=== PATIENT | female | born 1970 | race Caucasian/White ===

== ENCOUNTER 2021-06-06 14:44 | Emergency (ER) | payer SELFPAY ==
[~2021-06-06] VITALS: Ht 152.4 cm; Wt 104.3 kg
[~2021-06-06 14:44] MED LIST: CEPH500 PO; HYDACE5 PO; Naprosyn500 MG PO; Percocet 5-3251 EACH PO; Prilosec Otc20 MG; RANI150 PO; Valium5 MG PO
[2021-06-06 15:35] LABS: Appearance, Urine Clear (Clear); Bilirubin, Urine Neg (Neg); Blood, Urine Neg (Neg); Color, Urine Yellow (P-Yellow); Glucose Qualitative, Urine Neg (Neg); Ketones, Urine Neg (Neg); Leukocyte Esterase, Urine Neg (Neg); Nitrite, Urine Neg (Neg); Protein, Urine Neg (Neg); Specific Gravity, Urine 1.015 (1.003-1.022); Urobilinogen, Urine NORM (Normal)
[2021-06-06] MEDS ORDERED: Pyridium200 MG PO (17:26)
[2021-06-06] MEDS ORDERED: CEFD300 PO (17:26)
== END 2021-06-06 17:53 | disposition home or self-care (01) ==
LOC: ER 14:44
PROVIDERS: Student in an Organized Health Care Education/Training Program
DX: N30.90 Cystitis, unspecified without hematuria (principal); F17.200 Nicotine dependence, unspecified, uncomplicated
CPT/HCPCS: 81003; 87086; 99284

== ENCOUNTER → 2021-06-30 | Outpatient (CLI) | payer OTHER ==
[~2021-06-30] MED LIST changes: +CEFD300 PO; +Pyridium200 MG PO
== END | disposition home or self-care (01) ==
LOC: LAB SHORT 12:00
DX: N39.0 Urinary tract infection, site not specified (principal)
CPT/HCPCS: 87086; 87147

== ENCOUNTER 2021-12-10 08:18 | Emergency (ER) | payer SELFPAY ==
[~2021-12-10] VITALS: Ht 154.9 cm; Wt 111.1 kg
[2021-12-10] MEDS ORDERED: Cleocin HCl300 MG PO (09:04)
== END 2021-12-10 09:48 | disposition home or self-care (01) ==
LOC: ER 08:18
DX: K02.9 Dental caries, unspecified (principal); K21.9 Gastro-esophageal reflux disease without esophagitis; Z79.899 Other long term (current) drug therapy
CPT/HCPCS: 99282

== ENCOUNTER → 2022-04-03 | Outpatient (CLI) | payer OTHER ==
[~2022-04-03] MED LIST changes: +Cleocin HCl300 MG PO
== END | disposition home or self-care (01) ==
LOC: LAB SHORT 15:40 → LAB 15:40
DX: N39.0 Urinary tract infection, site not specified (principal)
CPT/HCPCS: 87077; 87086; 87186

== ENCOUNTER 2022-06-26 06:35 | Day surgery (SDC) | payer OTHER ==
[~2022-06-26] VITALS: Ht 154.9 cm; Wt 105.4 kg
[~2022-06-26 06:35] MED LIST changes: +Adipex-P37.5 MG PO; +CYCL10 PO; +NAPR220 PO; +Norco 10-325 T1 EACH PO
[2022-06-26] MEDS ORDERED: OMEP20ER PO (06:58)
[2022-06-26] MEDS ORDERED: MINO50 (07:01)
[2022-06-26] MEDS ORDERED: DOCU100 PO (07:02)
--- NOTE | 2022-06-26 09:31 | NUR ---
06/26/22 0931 Sherrill Woods PATIENT ALSO RECEIVED VANCO 1GM IN PREOP PRIOR TO ARRIVING IN THE OR.
--- NOTE | 2022-06-26 20:02 | NUR ---
SHIFT SUMMARY PT POD 0 L TKA. PT UP IN CHAIR T/O SHIFT. WORKED WITH PT. WALKER WITH ALL ACTIVITY. VOIDING W/O DIFFICULTY. PAIN HAS BEEN WELL MANAGED WITH PAIN MED (SEE EMAR). PLAN DC KAEL AFTER THERAPY CLEARS.
[2022-06-27 05:27] LABS: Bun/Creatinine Ratio 21.9 (12.0-20.0); Calcium, Blood 8.6 mg/dL (8.5-10.1); Creatinine, Blood 0.73 mg/dL (0.40-1.00); Potassium, Blood 4.2 mmol/L (3.5-5.5)
--- NOTE | 2022-06-27 06:26 | NUR ---
POD 1 S/P L TKA. PT VSS T/O NIGHT. DRESSING CDI, POLAR PACK IN [place]. PT REP FULL SENSATION, DENIED N/T, CAP REFILL WNL. PAIN MGD W/2 OXYCODONE +SCHEDULED TYLENOL AND TORADOL W/REP RELIEF. PT GHULAM PO, DENIED N/V, IS VOIDING URINE W/O DIFFICULTY. PT AMB W/FWW+SBA, GHULAM WELL. PLAN TO MOBILIZE W/PT AND DC HOME WHEN CLEARED.
[2022-06-27 06:44] LABS: BASOPHILS ABSOLUTE AUTO 0.01 K/mm3 (0.00-0.23); BASOPHILS PERCENT AUTO 0 % (0-2); EOSINOPHILS ABSOLUTE AUTO 0.02 K/mm3 (0.00-0.68); EOSINOPHILS PERCENT AUTO 0 % (0-6); Hematocrit 36.9 % (33.0-51.0); IMMATURE GRAN ABSOLUTE AUTO 0.02 K/mm3 (0.00-0.10); IMMATURE GRAN PERCENT AUTO 0 % (0-1); LYMPHOCYTES ABSOLUTE AUTO 1.67 K/mm3 (0.84-5.20); LYMPHOCYTES PERCENT AUTO 20 % (21-46); MONOCYTES ABSOLUTE AUTO 0.95 K/mm3 (0.16-1.47); MONOCYTES PERCENT AUTO 11 % (4-13); Mean Corpuscular HGB 31.2 pg (26.0-34.0); Mean Corpuscular HGB Conc 32.5 g/dL (31.5-36.5); Mean Corpuscular Volume 96 fL (80-100); Mean Platelet Volume 9.1 fL (9.1-12.4); NEUTROPHILS PERCENT AUTO 68 % (41-73); Platelet Count 220 K/mm3 (150-400); RDW Coefficient Variation 12.1 % (11.7-14.2); RDW Standard Deviation 42.5 fL (35.1-46.3); Red Blood Cell Count 3.85 M/mm3 (3.80-5.20); White Blood Cell Count 8.37 K/mm3 (4.00-11.30)
[2022-06-27] MEDS ORDERED: ELIQUIS2.5 MG PO (08:05)
[2022-06-27] MEDS ORDERED: Percocet 5-3251 EACH PO (08:05)
--- NOTE | 2022-06-27 11:47 | NUR ---
DISCHARGE PATIENT CLEARED THERAPY, EATING, DRINKING, VOIDING. PAIN IS REASAONABLY CONTROLLED. IV OUT, POLAR PACK, SCRIPTS AND DRESSINGS GIVEN TO PATIENT. ESCORTED OUT VIA WHEELCHAIR.
== END 2022-06-27 11:27 | disposition home or self-care (01) ==
LOC: ORSCMMR 06:35 → ORD 08:15 → SURS 12:58 → ORSCMMR 06-27 11:27
PROVIDERS: Orthopaedic Surgery
PROC: 8E0Y0CZ Robotic Assisted Procedure of Lower Extremity, Open Approach (ICD-10-PCS; principal; 2022-06-26 08:15)
PROC: 0SRD0JA Replacement of Left Knee Joint with Synthetic Substitute, Uncemented, Open Approach (ICD-10-PCS; principal; 2022-06-26 08:15)
DX: M17.12 Unilateral primary osteoarthritis, left knee (principal); M10.9 Gout, unspecified; I10 Essential (primary) hypertension; F41.9 Anxiety disorder, unspecified; E66.01 Morbid (severe) obesity due to excess calories; Z68.41 Body mass index [BMI] 40.0-44.9, adult; Z79.899 Other long term (current) drug therapy; Z87.891 Personal history of nicotine dependence
CPT/HCPCS: 27447; 20985; S2900; 36415; 73560-LT; 80048; 82947; 83036; 85025; 97110; 97116; 97161; A9270; C1776; J0171; J0360; J0690; J0735; J1100; J1170; J1885; J2250; J2405; J2704; J2795; J3010; J3370; J7120

== ENCOUNTER 2022-09-13 08:26 | Day surgery (SDC) | payer OTHER ==
[2022-09-10 11:02] LABS: BASOPHILS ABSOLUTE AUTO 0.02 K/mm3 (0.00-0.23); BASOPHILS PERCENT AUTO 1 % (0-2); EOSINOPHILS ABSOLUTE AUTO 0.04 K/mm3 (0.00-0.68); EOSINOPHILS PERCENT AUTO 1 % (0-6); Hematocrit 43.5 % (33.0-51.0); Hemoglobin 14.4 g/dL (11.5-16.0); IMMATURE GRAN PERCENT AUTO 0 % (0-1); LYMPHOCYTES PERCENT AUTO 33 % (21-46); MONOCYTES ABSOLUTE AUTO 0.34 K/mm3 (0.16-1.47); MONOCYTES PERCENT AUTO 9 % (4-13); Mean Corpuscular HGB 31.4 pg (26.0-34.0); Mean Corpuscular HGB Conc 33.1 g/dL (31.5-36.5); Mean Corpuscular Volume 95 fL (80-100); NEUTROPHILS PERCENT AUTO 57 % (41-73); Platelet Count 254 K/mm3 (150-400); RDW Coefficient Variation 12.4 % (11.7-14.2); RDW Standard Deviation 43.1 fL (35.1-46.3); Red Blood Cell Count 4.59 M/mm3 (3.80-5.20)
[2022-09-10 12:39] LABS: Bun/Creatinine Ratio 33.2 (12.0-20.0); Calcium, Blood 9.2 mg/dL (8.5-10.1); Creatinine, Blood 0.6 mg/dL (0.40-1.00); Potassium, Blood 4.1 mmol/L (3.5-5.5)
[~2022-09-13] VITALS: Ht 157.5 cm; Wt 114.4 kg
[~2022-09-13 08:26] MED LIST changes: +AMOX500 PO; +DOCU100 PO; +ELIQUIS2.5 MG PO; +LOSA50 PO; +MINO50; +OMEP20ER PO
--- NOTE | 2022-09-13 09:06 | NUR ---
Ambulatory in Day Surgery History, Chart, Medications and Allergies reviewed before start of procedure.Pre-Op teaching done. Pt verbalizes understanding. Patient States Post-Procedure ride home has been arranged.
--- NOTE | 2022-09-13 09:20 | NUR ---
09/13/22 0920 Glenn Meadows History, Chart, Medications and Allergies reviewed before start of procedure.MONITOR INTACT WITH CONTINUOUS PULSE OXIMETRY AND INTERMITTENT BP.3-LEAD EKG REVIEWED WITH PHYSICIAN PRIOR TO START OF PROCEDURE.O2 VIA N/C INTACT THROUGHOUT SEDATION/PROCEDURE. See Anesthesia record.
--- NOTE | 2022-09-13 10:25 | NUR ---
Ambulatory in Day SurgeryPatient up to Ambulate independently. Gait steady. Karla Paws warming gown applied. Discharge instructions reviewed with patient. Patient verbalizes understanding. Copy given to patient to take home.Lungs clear T/O to Auscultation. Patient States Post-Procedure ride home has been arranged. Discharged via wheelchair to private car for ride home.
== END 2022-09-13 10:26 | disposition home or self-care (01) ==
LOC: ORSCMMR 08:26 → ORD 10:00 → ORSCMMR 10:26
PROVIDERS: Internal Medicine Gastroenterology; Orthopaedic Surgery
PROC: 0DB98ZX Excision of Duodenum, Via Natural or Artificial Opening Endoscopic, Diagnostic (ICD-10-PCS; principal; 2022-09-13 10:00)
PROC: 0DB78ZX Excision of Stomach, Pylorus, Via Natural or Artificial Opening Endoscopic, Diagnostic (ICD-10-PCS; principal; 2022-09-13 10:00)
PROC: 0DBN8ZX Excision of Sigmoid Colon, Via Natural or Artificial Opening Endoscopic, Diagnostic (ICD-10-PCS; principal; 2022-09-13 10:00)
PROC: 0DBL8ZX Excision of Transverse Colon, Via Natural or Artificial Opening Endoscopic, Diagnostic (ICD-10-PCS; principal; 2022-09-13 10:00)
DX: K92.1 Melena (principal); D12.3 Benign neoplasm of transverse colon; K63.5 Polyp of colon; K44.9 Diaphragmatic hernia without obstruction or gangrene; K29.70 Gastritis, unspecified, without bleeding; K21.9 Gastro-esophageal reflux disease without esophagitis; Z79.899 Other long term (current) drug therapy; Z87.891 Personal history of nicotine dependence; E66.01 Morbid (severe) obesity due to excess calories; Z68.41 Body mass index [BMI] 40.0-44.9, adult
CPT/HCPCS: 36415; 80048; 85025; 88305; J2001; J2704; J7120

== ENCOUNTER → 2022-10-08 | Outpatient (CLI) | payer OTHER ==
[2022-10-09 14:07] LABS: Candida species (DNA Probe) Negative (NEGATIVE); G. vaginalis (DNA Probe) Positive (NEGATIVE); T. vaginalis (DNA Probe) Negative (NEGATIVE)
== END | disposition home or self-care (01) ==
LOC: LAB SHORT 15:35 → LAB 15:35
PROVIDERS: Obstetrics & Gynecology
DX: N76.0 Acute vaginitis (principal)
CPT/HCPCS: 87480; 87510; 87660

== ENCOUNTER 2022-11-27 09:34 | Day surgery (SDC) | payer OTHER ==
[~2022-11-27] VITALS: Ht 157.5 cm; Wt 118.4 kg
[2022-11-27] MEDS ORDERED: AMLODIPINE BESYL5 MG PO (11:43)
--- NOTE | 2022-11-27 13:19 | NUR ---
PT GIVEN 25 MG IVP BENADRYL AFTER C/O FILLING ITCHING FROM [facility]
--- NOTE | 2022-11-27 18:15 | NUR ---
ARRIVAL TO UNIT ARRIVES TO [address] ON HOSPITAL BED, DROWSY w/ LIGHT SNORE. DAWTI WRAP TO RLE FROM THIGH TO TOES. NO DRNG NOTED. PPP. PWD. VSS. ALLOWED TO SLEEP.
--- NOTE | 2022-11-28 05:15 | NUR ---
SHIFT SUMMARY NO ACUTE CHANGES. PT SLEPT WELL. DAWIT WRAP TO R KNEE REMAINS CDI WITH POLAR PACK IN PLACE. UP WITH 1 SBA USING FWW + GB. PAIN MANAGED WITH SCHEDULED TYLENOL/TORADOL + 2 ROXICODONE. GHULAM PO. VOIDING SPONTANEOUSLY. PLAN TO WORK WITH PT/OT TODAY. USES CALL LIGHT APPROPRIATELY.
--- NOTE | 2022-11-28 05:18 | NUR ---
TORADOL TORADOL GIVEN AT 0423 THIS MORNING. POWER WENT OUT DURING EMAR DOCUMENTATION AND IS NOW LOCKED AND WILL NOT ALLOW THIS RN TO DOCUMENT/EDIT TORADOL ADMINISTRATION.
[2022-11-28 05:24] LABS: BASOPHILS PERCENT AUTO 0 % (0-2); EOSINOPHILS PERCENT AUTO 0 % (0-6); Hematocrit 34.6 % (33.0-51.0); Hemoglobin 11.5 g/dL (11.5-16.0); IMMATURE GRAN ABSOLUTE AUTO 0.03 K/mm3 (0.00-0.10); IMMATURE GRAN PERCENT AUTO 0 % (0-1); LYMPHOCYTES ABSOLUTE AUTO 0.86 K/mm3 (0.84-5.20); LYMPHOCYTES PERCENT AUTO 7 % (21-46); MONOCYTES PERCENT AUTO 5 % (4-13); Mean Corpuscular HGB 31.6 pg (26.0-34.0); Mean Corpuscular HGB Conc 33.2 g/dL (31.5-36.5); Mean Corpuscular Volume 95 fL (80-100); Mean Platelet Volume 9.1 fL (9.1-12.4); NEUTROPHILS ABSOLUTE AUTO 10.42 K/mm3 (1.96-9.15); NEUTROPHILS PERCENT AUTO 88 % (41-73); Platelet Count 235 K/mm3 (150-400); RDW Coefficient Variation 12.9 % (11.7-14.2); RDW Standard Deviation 44.7 fL (35.1-46.3); Red Blood Cell Count 3.64 M/mm3 (3.80-5.20); White Blood Cell Count 11.91 K/mm3 (4.00-11.30)
[2022-11-28 05:41] LABS: Bun/Creatinine Ratio 26.9 (12.0-20.0); Calcium, Blood 8.4 mg/dL (8.5-10.1); Creatinine, Blood 0.63 mg/dL (0.40-1.00); Potassium, Blood 4.2 mmol/L (3.5-5.5)
--- NOTE | 2022-11-28 09:15 | NUR ---
DRAINAGE FROM SURGICAL SITE NOTED TO SATURATE THRU AQUACEL TO DAWIT WRAP. DAWIT WRAP & AQUACEL REPLACED AFTER INCISION PATTED w/ 4x4 GAUZE. MODERATE AMOUNT OF DRAIANGE NOTED.
[2022-11-28] MEDS ORDERED: Percocet 5-3251 EACH PO (10:41)
[2022-11-28] MEDS ORDERED: ELIQUIS2.5 MG PO (10:42)
--- NOTE | 2022-11-28 11:20 | NUR ---
DRAINAGE FROM SURGICAL SITE NOTED TO SATURATE 50% OF AQUACEL BUT NOT THRU. DAWIT WRAP & AQUACEL REPLACED AFTER INCISION PATTED w/ 4x4 GAUZE. MODERATE AMOUNT OF DRAIANGE NOTED. MESSAGE LEFT w/ . HOLDING DC AT THIS TIME TO MONITOR.
--- NOTE | 2022-11-28 14:00 | NUR ---
ONLY SCANT SHADOWING NOTED TO MARILEE
--- NOTE | 2022-11-28 14:58 | NUR ---
DISCHARGE EDUCATION DISCUSSED w/ PT. AGREEABLE & FEELS COMFORTABLE GOING HOME. DRESSING CHANGED 1 MORE TIME. SCANT DRNG. DAWIT WRAP REAPPLIED. PT REPORTS UNDERSTANDING THE IMPORTANCE OF RICE. WAITING FOR RIDE.
--- NOTE | 2022-11-28 15:31 | NUR ---
PATIENT IS BEING WHEELCHAIRED OUT TO HER MOTHERS CAR TO BE TAKEN HOME WITH ALL OF HER PERSONAL ITEMS.
== END 2022-11-28 15:32 | disposition home or self-care (01) ==
LOC: ORSCMMR 09:34 → ORD 11:00 → ORSCMMR 11:00 → SURS 17:59 → ORSCMMR 11-28 15:32
PROVIDERS: Orthopaedic Surgery
PROC: 0SRC0JA Replacement of Right Knee Joint with Synthetic Substitute, Uncemented, Open Approach (ICD-10-PCS; principal; 2022-11-27 15:30)
DX: M17.11 Unilateral primary osteoarthritis, right knee (principal); E66.01 Morbid (severe) obesity due to excess calories; Z68.42 Body mass index [BMI] 45.0-49.9, adult
CPT/HCPCS: 36415; 73560-RT; 80048; 85025; 97110; 97116; 97162; 97530; A9270; C1776; J0171; J0690; J0735; J1100; J1170; J1885; J2250; J2405; J2704; J2765; J2795; J3010; J3370; J7120

== ENCOUNTER → 2022-12-18 | Outpatient (CLI) | payer OTHER ==
[~2022-12-18] MED LIST changes: +AMLODIPINE BESYL5 MG PO
[2022-12-20 13:12] LABS: HPV 16 Negative (Negative); HPV 18 Negative (Negative); HPV OTHER HR TYPES Negative (Negative)
== END | disposition home or self-care (01) ==
LOC: LAB SHORT 16:51 → LAB 16:51
PROVIDERS: Obstetrics & Gynecology
DX: Z01.419 Encounter for gynecological examination (general) (routine) without abnormal findings (principal)
CPT/HCPCS: 87624; G0145

== ENCOUNTER 2023-01-12 19:50 | Emergency (ER) | payer OTHER ==
[~2023-01-12] VITALS: Ht 157.5 cm; Wt 117.9 kg
[2023-01-12 20:35] VITALS: BP 173/135
== END 2023-01-12 20:43 | disposition home or self-care (01) ==
LOC: ER 19:50
DX: L76.32 Postprocedural hematoma of skin and subcutaneous tissue following other procedure (principal); G89.18 Other acute postprocedural pain; K21.9 Gastro-esophageal reflux disease without esophagitis; F17.200 Nicotine dependence, unspecified, uncomplicated; Z79.899 Other long term (current) drug therapy
CPT/HCPCS: 99282

== ENCOUNTER → 2023-02-04 | Outpatient (CLI) | payer OTHER | END | disposition home or self-care (01) | LOC: LAB 12:58 → LAB SHORT 12:58 | DX: R30.0 Dysuria (principal) | CPT/HCPCS: 87077; 87086; 87186 ==

== ENCOUNTER → 2023-02-05 | Outpatient (CLI) | payer OTHER ==
[2023-02-05 16:19] LABS: Source, Urine Clean Catch
[2023-02-05 19:06] LABS: Appearance, Urine Clear (Clear); Bilirubin, Urine Neg (Neg); Blood, Urine 1+ (Neg); Color, Urine Yellow (P-Yellow); Glucose Qualitative, Urine Neg (Neg); Ketones, Urine Neg (Neg); Leukocyte Esterase, Urine Neg (Neg); Nitrite, Urine Neg (Neg); Protein, Urine 1+ (Neg); Urobilinogen, Urine NORM (Normal)
[2023-02-05 19:25] LABS: Bacteria Few /hpf; Calcium Oxalate Crystals Rare /hpf; Red Blood Cells, Urine 0-2 /hpf (0-2); Squamous Epithelial Cells Few /hpf (Few); White Blood Cells, Urine 0-2 /hpf (0-5)
[2023-02-06 10:44] LABS: Candida species (DNA Probe) Negative (NEGATIVE); G. vaginalis (DNA Probe) Negative (NEGATIVE); T. vaginalis (DNA Probe) Negative (NEGATIVE)
== END | disposition home or self-care (01) ==
LOC: LAB 16:17 → LAB SHORT 16:17
PROVIDERS: Obstetrics & Gynecology
DX: N76.0 Acute vaginitis (principal); R30.0 Dysuria
CPT/HCPCS: 81001; 87480; 87510; 87660

== ENCOUNTER → 2023-04-16 | Outpatient (CLI) | payer OTHER | LOC: LAB SHORT 12:00 → LAB 12:00 | DX: R30.0 Dysuria (principal) | CPT/HCPCS: 87077; 87086; 87186 ==

== ENCOUNTER → 2023-05-01 | Outpatient (CLI) | payer OTHER ==
[2023-05-01 14:15] LABS: Source, Urine Clean Catch
[2023-05-01 15:48] LABS: Appearance, Urine Hazy (Clear); Blood, Urine 1+ (Neg); Color, Urine Yellow (P-Yellow); Glucose Qualitative, Urine Neg (Neg); Ketones, Urine Neg (Neg); Leukocyte Esterase, Urine 1+ (Neg); Nitrite, Urine Neg (Neg); Protein, Urine 2+ (Neg); Specific Gravity, Urine 1.025 (1.003-1.022); Urobilinogen, Urine 1+ (Normal)
[2023-05-01 16:27] LABS: Bilirubin, Urine 1+ (Neg)
[2023-05-01 16:29] LABS: Bacteria Many /hpf; Calcium Oxalate Crystals Mod /hpf; Mucus Light (0-Heavy); Red Blood Cells, Urine 0-2 /hpf (0-2); Squamous Epithelial Cells Mod /hpf (Few)
[2023-05-02 07:57] LABS: Candida species (DNA Probe) Negative (NEGATIVE); G. vaginalis (DNA Probe) Positive (NEGATIVE); T. vaginalis (DNA Probe) Negative (NEGATIVE)
== END ==
LOC: LAB 14:13 → LAB SHORT 14:13
PROVIDERS: Obstetrics & Gynecology
DX: N76.0 Acute vaginitis (principal); R30.0 Dysuria
CPT/HCPCS: 81001; 87086; 87480; 87510; 87660

== ENCOUNTER → 2023-08-09 | Outpatient (CLI) | payer OTHER ==
[~2023-08-09] MED LIST changes: +SOLIFENACIN SUC10 MG PO
[2023-08-10 10:48] LABS: Candida species (DNA Probe) Negative (NEGATIVE); G. vaginalis (DNA Probe) Negative (NEGATIVE); T. vaginalis (DNA Probe) Negative (NEGATIVE)
== END ==
LOC: LAB 17:47 → LAB SHORT 17:47
PROVIDERS: Obstetrics & Gynecology
DX: N76.0 Acute vaginitis (principal)
CPT/HCPCS: 87480; 87510; 87660

== ENCOUNTER 2023-08-16 08:32 | Day surgery (SDC) | payer OTHER ==
[~2023-08-16] VITALS: Ht 157.5 cm; Wt 122.0 kg
[2023-08-16] MEDS ORDERED: MELO7.5 (09:05)
[2023-08-16] MEDS ORDERED: NAPR220 PO (09:06)
--- NOTE | 2023-08-16 10:47 | NUR ---
08/16/23 1047 Jose Chávez ROPIVACAINE 0.5% 10 MLS MIXED & VERIFIED W/ EPI 0.05 ML (1MG/ML), PER ORDER, TO MAKE ROPIVACAINE 0.5% 1:200,000 FOR INJECTION AT OPSITE BY DR MIN
--- NOTE | 2023-08-16 13:16 | NUR ---
08/16/23 1316 CELIA SUAREZ PT VOIDED PRIOR TO DC. END NOTE
[2023-08-16 13:19] VITALS: BP 125/76
== END 2023-08-16 13:13 | disposition home or self-care (01) ==
LOC: ORSCSDS 08:32
PROVIDERS: Orthopaedic Surgery
PROC: 0JBN0ZZ Excision of Right Lower Leg Subcutaneous Tissue and Fascia, Open Approach (ICD-10-PCS; principal; 2023-08-16 09:45)
DX: M71.21 Synovial cyst of popliteal space [Baker], right knee (principal); I10 Essential (primary) hypertension; Z96.653 Presence of artificial knee joint, bilateral; E66.01 Morbid (severe) obesity due to excess calories; Z68.42 Body mass index [BMI] 45.0-49.9, adult; Z79.899 Other long term (current) drug therapy
CPT/HCPCS: 88304; 88305; 88313; A9270; J0171; J0690; J1100; J2250; J2405; J2795; J3010; J7120

== ENCOUNTER → 2023-09-30 | Outpatient (CLI) | payer OTHER ==
[~2023-09-30] MED LIST changes: +MELO7.5
[2023-09-30 18:28] LABS: Source, Urine Clean Catch
[2023-09-30 20:01] LABS: Appearance, Urine Clear (Clear); Bilirubin, Urine Neg (Neg); Blood, Urine 1+ (Neg); Color, Urine Yellow (P-Yellow); Glucose Qualitative, Urine Neg (Neg); Ketones, Urine Neg (Neg); Leukocyte Esterase, Urine Neg (Neg); Nitrite, Urine Neg (Neg); Protein, Urine 2+ (Neg); Urobilinogen, Urine NORM (Normal)
[2023-09-30 20:04] LABS: Bacteria Few /hpf; Squamous Epithelial Cells Mod /hpf (Few); White Blood Cells, Urine 0-2 /hpf (0-5)
[2023-10-01 13:00] LABS: Candida species (DNA Probe) Negative (NEGATIVE); G. vaginalis (DNA Probe) Negative (NEGATIVE); T. vaginalis (DNA Probe) Negative (NEGATIVE)
== END ==
LOC: LAB SHORT 12:00 → LAB 12:00
PROVIDERS: Obstetrics & Gynecology
DX: N76.0 Acute vaginitis (principal); R30.0 Dysuria
CPT/HCPCS: 81001; 87480; 87510; 87660

== ENCOUNTER → 2023-10-07 | Outpatient (CLI) | payer OTHER ==
[2023-10-07 17:14] LABS: Source, Urine Clean Catch
[2023-10-07 19:01] LABS: Appearance, Urine Clear (Clear); Bilirubin, Urine Neg (Neg); Blood, Urine Neg (Neg); Color, Urine Yellow (P-Yellow); Glucose Qualitative, Urine Neg (Neg); Ketones, Urine Neg (Neg); Leukocyte Esterase, Urine Neg (Neg); Nitrite, Urine Neg (Neg); Protein, Urine 1+ (Neg); Specific Gravity, Urine 1.025 (1.003-1.022); Urobilinogen, Urine NORM (Normal)
[2023-10-08 09:23] LABS: Bacterial Vaginosis PCR Negative (NEGATIVE); Candida Group, PCR NOT DETECTED (NOT DETECT); Candida glabrata-krusei, PCR NOT DETECTED (NOT DETECT)
== END | disposition home or self-care (01) ==
LOC: LAB 17:12 → LAB SHORT 17:12
PROVIDERS: Obstetrics & Gynecology
DX: N76.0 Acute vaginitis (principal)
CPT/HCPCS: 87481; 87661; 87801

== ENCOUNTER → 2024-02-18 | Outpatient (CLI) | payer OTHER ==
[2024-02-18 16:23] LABS: Source, Urine Clean Catch
[2024-02-18 18:54] LABS: Appearance, Urine Cloudy (Clear); Blood, Urine 2+ (Neg); Color, Urine Yellow (P-Yellow); Glucose Qualitative, Urine Neg (Neg); Ketones, Urine 2+ (Neg); Leukocyte Esterase, Urine 3+ (Neg); Nitrite, Urine Pos (Neg); Protein, Urine 2+ (Neg); Specific Gravity, Urine 1.025 (1.003-1.022); Urobilinogen, Urine NORM (Normal)
[2024-02-18 19:05] LABS: Bilirubin, Urine 1+ (Neg)
[2024-02-18 19:07] LABS: Amorphous Light (0-Heavy); Bacteria Many /hpf; Mucus Light (0-Heavy); Squamous Epithelial Cells Mod /hpf (Few)
[2024-02-18 20:37] LABS: Bacterial Vaginosis PCR Negative (NEGATIVE); Candida Group, PCR NOT DETECTED (NOT DETECT); Candida glabrata-krusei, PCR NOT DETECTED (NOT DETECT)
== END | disposition home or self-care (01) ==
LOC: LAB SHORT 16:19 → LAB 16:19
PROVIDERS: Family Medicine
DX: N76.0 Acute vaginitis (principal); R30.0 Dysuria
CPT/HCPCS: 81001; 87077; 87086; 87186; 87481; 87661; 87801

== ENCOUNTER → 2024-04-17 | Outpatient (CLI) | payer OTHER ==
[2024-04-17 15:31] LABS: Source, Urine Clean Catch
[2024-04-17 18:02] LABS: Appearance, Urine Clear (Clear); Bilirubin, Urine Neg (Neg); Blood, Urine 1+ (Neg); Color, Urine Yellow (P-Yellow); Glucose Qualitative, Urine Neg (Neg); Ketones, Urine Neg (Neg); Leukocyte Esterase, Urine 2+ (Neg); Nitrite, Urine Neg (Neg); Protein, Urine 1+ (Neg); Specific Gravity, Urine 1.015 (1.003-1.022); Urobilinogen, Urine 1+ (Normal)
[2024-04-17 18:15] LABS: Bacteria Many /hpf; Red Blood Cells, Urine 0-2 /hpf (0-2); Squamous Epithelial Cells Mod /hpf (Few)
[2024-04-17 19:51] LABS: Bacterial Vaginosis PCR Negative (NEGATIVE); Candida Group, PCR NOT DETECTED (NOT DETECT); Candida glabrata-krusei, PCR NOT DETECTED (NOT DETECT)
== END | disposition home or self-care (01) ==
LOC: LAB SHORT 15:28 → LAB 15:28
PROVIDERS: Obstetrics & Gynecology
DX: N76.0 Acute vaginitis (principal); R30.0 Dysuria
CPT/HCPCS: 81001; 87481; 87661; 87801

== ENCOUNTER → 2024-04-20 | Outpatient (CLI) | payer OTHER ==
[2024-04-20 16:58] LABS: Source, Urine Clean Catch
[2024-04-20 18:58] LABS: Appearance, Urine Clear (Clear); Bilirubin, Urine Neg (Neg); Blood, Urine 2+ (Neg); Color, Urine Yellow (P-Yellow); Glucose Qualitative, Urine Neg (Neg); Ketones, Urine Neg (Neg); Leukocyte Esterase, Urine 3+ (Neg); Nitrite, Urine Neg (Neg); Protein, Urine 1+ (Neg); Urobilinogen, Urine NORM (Normal)
[2024-04-20 19:11] LABS: Bacteria Many /hpf; Squamous Epithelial Cells Mod /hpf (Few)
[2024-04-20 19:12] LABS: Mucus Light (0-Heavy)
== END ==
LOC: LAB SHORT 16:57 → LAB 16:57
PROVIDERS: Obstetrics & Gynecology
DX: R30.0 Dysuria (principal)
CPT/HCPCS: 81001; 87086; 87147

== ENCOUNTER → 2024-06-08 | Outpatient (CLI) | payer OTHER ==
[2024-06-08 13:39] LABS: Source, Urine Clean Catch
[2024-06-08 14:28] LABS: Bacterial Vaginosis PCR Negative (NEGATIVE); Candida Group, PCR NOT DETECTED (NOT DETECT); Candida glabrata-krusei, PCR NOT DETECTED (NOT DETECT)
[2024-06-08 15:10] LABS: Appearance, Urine Clear (Clear); Bilirubin, Urine Neg (Neg); Blood, Urine 1+ (Neg); Color, Urine Yellow (P-Yellow); Glucose Qualitative, Urine Neg (Neg); Ketones, Urine Neg (Neg); Leukocyte Esterase, Urine Neg (Neg); Nitrite, Urine Neg (Neg); Protein, Urine 1+ (Neg); Specific Gravity, Urine 1.015 (1.003-1.022); Urobilinogen, Urine NORM (Normal)
[2024-06-08 15:43] LABS: Bacteria Many /hpf; Mucus Mod (0-Heavy); Squamous Epithelial Cells Few /hpf (Few); White Blood Cells, Urine 0-2 /hpf (0-5)
== END | disposition home or self-care (01) ==
LOC: LAB 11:24 → LAB SHORT 11:24
PROVIDERS: Obstetrics & Gynecology
DX: N76.0 Acute vaginitis (principal); R30.0 Dysuria
CPT/HCPCS: 81001; 87086; 87481; 87661; 87801

== ENCOUNTER → 2024-08-10 | Outpatient (CLI) | payer OTHER ==
[2024-08-10 13:51] LABS: Source, Urine Clean Catch
[2024-08-10 15:58] LABS: Appearance, Urine Clear (Clear); Bilirubin, Urine Neg (Neg); Blood, Urine 2+ (Neg); Color, Urine Yellow (P-Yellow); Glucose Qualitative, Urine Neg (Neg); Ketones, Urine Neg (Neg); Leukocyte Esterase, Urine 1+ (Neg); Nitrite, Urine Neg (Neg); Protein, Urine 1+ (Neg); Urobilinogen, Urine NORM (Normal)
[2024-08-10 16:04] LABS: Bacteria Few /hpf; Mucus Light (0-Heavy); Squamous Epithelial Cells Mod /hpf (Few)
[2024-08-10 17:07] LABS: Bacterial Vaginosis PCR Negative (NEGATIVE); Candida glabrata-krusei, PCR NOT DETECTED (NOT DETECT)
[2024-08-10 18:07] LABS: Candida Group, PCR DETECTED (NOT DETECT)
== END ==
LOC: LAB SHORT 13:49 → LAB 13:49
PROVIDERS: Obstetrics & Gynecology
DX: R35.0 Frequency of micturition (principal)
CPT/HCPCS: 81001; 87086; 87147; 87481; 87661; 87801

== ENCOUNTER → 2024-09-02 | Outpatient (CLI) | payer OTHER ==
[2024-09-02 22:18] LABS: Bacterial Vaginosis PCR Negative (NEGATIVE); Candida Group, PCR NOT DETECTED (NOT DETECT); Candida glabrata-krusei, PCR NOT DETECTED (NOT DETECT)
== END ==
LOC: LAB 17:14 → LAB SHORT 17:14
PROVIDERS: Obstetrics & Gynecology
DX: N76.0 Acute vaginitis (principal)
CPT/HCPCS: 81515

== ENCOUNTER → 2024-09-29 | Outpatient (CLI) | payer OTHER ==
[2024-09-30 12:32] LABS: Bacterial Vaginosis PCR Negative (NEGATIVE); Candida Group, PCR DETECTED (NOT DETECT); Candida glabrata-krusei, PCR NOT DETECTED (NOT DETECT)
== END | disposition home or self-care (01) ==
LOC: LAB 18:28 → LAB SHORT 18:28
PROVIDERS: Nurse Practitioner Family
DX: N89.8 Other specified noninflammatory disorders of vagina (principal)
CPT/HCPCS: 81515; 87086; 87147

== ENCOUNTER → 2024-10-28 | Outpatient (CLI) | payer OTHER ==
[2024-10-28 14:48] LABS: Source, Urine Clean Catch
[2024-10-28 17:35] LABS: Appearance, Urine Hazy (Clear); Bilirubin, Urine Neg (Neg); Blood, Urine Neg (Neg); Color, Urine Yellow (P-Yellow); Glucose Qualitative, Urine Neg (Neg); Ketones, Urine Neg (Neg); Leukocyte Esterase, Urine 1+ (Neg); Nitrite, Urine Neg (Neg); Protein, Urine 2+ (Neg); Urobilinogen, Urine NORM (Normal)
[2024-10-28 17:45] LABS: Bacteria Few /hpf; Calcium Oxalate Crystals Few /hpf; Red Blood Cells, Urine 0-2 /hpf (0-2); Squamous Epithelial Cells Mod /hpf (Few)
[2024-10-28 18:32] LABS: Bacterial Vaginosis PCR Negative (NEGATIVE); Candida Group, PCR NOT DETECTED (NOT DETECT); Candida glabrata-krusei, PCR NOT DETECTED (NOT DETECT)
== END ==
LOC: LAB 14:45 → LAB SHORT 14:45
PROVIDERS: Obstetrics & Gynecology
DX: N76.0 Acute vaginitis (principal); R30.0 Dysuria
CPT/HCPCS: 81001; 81515; 87086

== ENCOUNTER → 2024-12-01 | Outpatient (CLI) | payer OTHER ==
[2024-12-01 18:12] LABS: Source, Urine Clean Catch
[2024-12-01 18:54] LABS: Appearance, Urine Clear (Clear); Bilirubin, Urine Neg (Neg); Blood, Urine 1+ (Neg); Color, Urine Yellow (P-Yellow); Glucose Qualitative, Urine Neg (Neg); Ketones, Urine Neg (Neg); Leukocyte Esterase, Urine Neg (Neg); Nitrite, Urine Neg (Neg); Protein, Urine 2+ (Neg); Urobilinogen, Urine NORM (Normal)
[2024-12-01 19:01] LABS: Bacteria Many /hpf; Mucus Light (0-Heavy); Squamous Epithelial Cells Rare /hpf (Few); White Blood Cells, Urine 0-2 /hpf (0-5)
[2024-12-01 19:03] LABS: BASOPHILS ABSOLUTE AUTO 0.01 K/mm3 (0.00-0.23); BASOPHILS PERCENT AUTO 0 % (0-2); EOSINOPHILS PERCENT AUTO 4 % (0-6); Hematocrit 38.3 % (33.0-51.0); Hemoglobin 11.8 g/dL (11.5-16.0); IMMATURE GRAN ABSOLUTE AUTO 0.01 K/mm3 (0.00-0.10); IMMATURE GRAN PERCENT AUTO 0 % (0-1); LYMPHOCYTES ABSOLUTE AUTO 1.47 K/mm3 (0.84-5.20); LYMPHOCYTES PERCENT AUTO 31 % (21-46); MONOCYTES ABSOLUTE AUTO 0.47 K/mm3 (0.16-1.47); MONOCYTES PERCENT AUTO 10 % (4-13); Mean Corpuscular HGB 28.6 pg (26.0-34.0); Mean Corpuscular HGB Conc 30.8 g/dL (31.5-36.5); Mean Corpuscular Volume 93 fL (80-100); Mean Platelet Volume 9.9 fL (9.1-12.4); NEUTROPHILS ABSOLUTE AUTO 2.52 K/mm3 (1.96-9.15); NEUTROPHILS PERCENT AUTO 54 % (41-73); Platelet Count 258 K/mm3 (150-400); RDW Coefficient Variation 14.4 % (11.7-14.2); RDW Standard Deviation 49.4 fL (35.1-46.3); Red Blood Cell Count 4.12 M/mm3 (3.80-5.20); White Blood Cell Count 4.68 K/mm3 (4.00-11.30)
[2024-12-01 19:11] LABS: C-REACTIVE PROTEIN, EXT RANGE 1.24 mg/dL (0.000-0.300)
[2024-12-01 19:13] LABS: Albumin, Blood 3.7 g/dL (3.4-5.0); Albumin/Globulin Ratio 1.1 (0.8-1.8); Bilirubin, Total 0.6 mg/dL (0.1-1.0); Bun/Creatinine Ratio 23.1 (12.0-20.0); Calcium, Blood 9.5 mg/dL (8.5-10.1); Creatinine, Blood 0.52 mg/dL (0.40-1.00); Globulin, Blood 3.4 g/dL (2.2-4.0); Potassium, Blood 4.2 mmol/L (3.5-5.5); Total Protein, Blood 7.1 g/dL (6.4-8.2)
== END ==
LOC: LAB SHORT 18:05 → LAB 18:05
PROVIDERS: Nurse Practitioner Family
DX: T84.53XD Infection and inflammatory reaction due to internal right knee prosthesis, subsequent encounter (principal); M01.X61 Direct infection of right knee in infectious and parasitic diseases classified elsewhere; N39.0 Urinary tract infection, site not specified
CPT/HCPCS: 80053; 81001; 82550; 85025; 86140; 87086

== ENCOUNTER → 2024-12-09 | Outpatient (CLI) | payer OTHER ==
[2024-12-09 19:01] LABS: BASOPHILS ABSOLUTE AUTO 0.03 K/mm3 (0.00-0.23); BASOPHILS PERCENT AUTO 1 % (0-2); EOSINOPHILS ABSOLUTE AUTO 0.08 K/mm3 (0.00-0.68); EOSINOPHILS PERCENT AUTO 2 % (0-6); Hematocrit 39.5 % (33.0-51.0); Hemoglobin 12.5 g/dL (11.5-16.0); IMMATURE GRAN PERCENT AUTO 0 % (0-1); LYMPHOCYTES ABSOLUTE AUTO 1.41 K/mm3 (0.84-5.20); LYMPHOCYTES PERCENT AUTO 29 % (21-46); MONOCYTES ABSOLUTE AUTO 0.47 K/mm3 (0.16-1.47); MONOCYTES PERCENT AUTO 10 % (4-13); Mean Corpuscular HGB 28.5 pg (26.0-34.0); Mean Corpuscular HGB Conc 31.6 g/dL (31.5-36.5); Mean Corpuscular Volume 90 fL (80-100); NEUTROPHILS ABSOLUTE AUTO 2.94 K/mm3 (1.96-9.15); NEUTROPHILS PERCENT AUTO 60 % (41-73); Platelet Count 270 K/mm3 (150-400); RDW Coefficient Variation 13.7 % (11.7-14.2); RDW Standard Deviation 45.4 fL (35.1-46.3); Red Blood Cell Count 4.38 M/mm3 (3.80-5.20); White Blood Cell Count 4.93 K/mm3 (4.00-11.30)
[2024-12-09 19:38] LABS: C-REACTIVE PROTEIN, EXT RANGE 0.501 mg/dL (0.000-0.300)
[2024-12-09 19:41] LABS: Albumin, Blood 3.6 g/dL (3.4-5.0); Albumin/Globulin Ratio 1.1 (0.8-1.8); Bilirubin, Total 0.4 mg/dL (0.1-1.0); Bun/Creatinine Ratio 26.1 (12.0-20.0); Calcium, Blood 9.3 mg/dL (8.5-10.1); Creatinine, Blood 0.5 mg/dL (0.40-1.00); Globulin, Blood 3.4 g/dL (2.2-4.0); Potassium, Blood 3.9 mmol/L (3.5-5.5)
== END ==
LOC: LAB 18:29 → LAB SHORT 18:29
PROVIDERS: Nurse Practitioner Family
DX: T84.53XD Infection and inflammatory reaction due to internal right knee prosthesis, subsequent encounter (principal); M01.X61 Direct infection of right knee in infectious and parasitic diseases classified elsewhere
CPT/HCPCS: 80053; 82550; 85025; 85651; 86140

== ENCOUNTER → 2024-12-10 | Outpatient (CLI) | payer OTHER ==
[2024-12-10 21:54] LABS: Bacterial Vaginosis PCR Negative (NEGATIVE); Candida Group, PCR NOT DETECTED (NOT DETECT); Candida glabrata-krusei, PCR NOT DETECTED (NOT DETECT)
== END ==
LOC: LAB SHORT 19:07 → LAB 19:07
PROVIDERS: Nurse Practitioner Family
DX: N39.0 Urinary tract infection, site not specified (principal)
CPT/HCPCS: 81515; 87086

== ENCOUNTER → 2024-12-15 | Outpatient (CLI) | payer OTHER ==
[2024-12-15 20:01] LABS: C-REACTIVE PROTEIN, EXT RANGE 0.5 mg/dL (0.000-0.300)
[2024-12-15 20:05] LABS: BASOPHILS ABSOLUTE AUTO 0.03 K/mm3 (0.00-0.23); BASOPHILS PERCENT AUTO 1 % (0-2); EOSINOPHILS ABSOLUTE AUTO 0.13 K/mm3 (0.00-0.68); EOSINOPHILS PERCENT AUTO 3 % (0-6); Hematocrit 40.5 % (33.0-51.0); Hemoglobin 12.8 g/dL (11.5-16.0); IMMATURE GRAN PERCENT AUTO 0 % (0-1); LYMPHOCYTES ABSOLUTE AUTO 1.52 K/mm3 (0.84-5.20); LYMPHOCYTES PERCENT AUTO 30 % (21-46); MONOCYTES ABSOLUTE AUTO 0.38 K/mm3 (0.16-1.47); MONOCYTES PERCENT AUTO 8 % (4-13); Mean Corpuscular HGB 28.6 pg (26.0-34.0); Mean Corpuscular HGB Conc 31.6 g/dL (31.5-36.5); Mean Corpuscular Volume 91 fL (80-100); Mean Platelet Volume 9.7 fL (9.1-12.4); NEUTROPHILS ABSOLUTE AUTO 3.03 K/mm3 (1.96-9.15); NEUTROPHILS PERCENT AUTO 59 % (41-73); Platelet Count 273 K/mm3 (150-400); RDW Coefficient Variation 13.7 % (11.7-14.2); RDW Standard Deviation 45.6 fL (35.1-46.3); Red Blood Cell Count 4.47 M/mm3 (3.80-5.20); White Blood Cell Count 5.09 K/mm3 (4.00-11.30)
[2024-12-15 20:07] LABS: Albumin, Blood 3.6 g/dL (3.4-5.0); Albumin/Globulin Ratio 1.1 (0.8-1.8); Bilirubin, Total 0.4 mg/dL (0.1-1.0); Bun/Creatinine Ratio 20.7 (12.0-20.0); Calcium, Blood 8.7 mg/dL (8.5-10.1); Creatinine, Blood 0.68 mg/dL (0.40-1.00); Globulin, Blood 3.4 g/dL (2.2-4.0)
== END | disposition home or self-care (01) ==
LOC: LAB 18:12 → LAB SHORT 18:12
PROVIDERS: Nurse Practitioner Family
DX: T84.53XD Infection and inflammatory reaction due to internal right knee prosthesis, subsequent encounter (principal); M01.X61 Direct infection of right knee in infectious and parasitic diseases classified elsewhere
CPT/HCPCS: 80053; 82550; 85025; 85651; 86140

== ENCOUNTER → 2025-05-31 | Outpatient (CLI) | payer OTHER ==
[2025-06-01 15:35] LABS: Bacterial Vaginosis PCR Negative (NEGATIVE); Candida Group, PCR NOT DETECTED (NOT DETECT); Candida glabrata-krusei, PCR NOT DETECTED (NOT DETECT)
== END ==
LOC: LAB SHORT 14:00 → LAB 14:00 → LAB SHORT 06-01 09:09
PROVIDERS: Nurse Practitioner Family
DX: R30.0 Dysuria (principal)
CPT/HCPCS: 81515; 87086

== ENCOUNTER → 2025-06-07 | Outpatient (CLI) | payer OTHER ==
[2025-06-07 11:44] LABS: Source, Urine Clean Catch
[2025-06-07 13:35] LABS: Bilirubin, Urine Neg (Neg); Color, Urine Yellow (P-Yellow); Glucose Qualitative, Urine Neg (Neg); Ketones, Urine Neg (Neg); Leukocyte Esterase, Urine Neg (Neg); Protein, Urine 2+ (Neg); Specific Gravity, Urine 1.020 (1.003-1.022); Urobilinogen, Urine NORM (Normal)
[2025-06-07 14:39] LABS: Bacterial Vaginosis PCR Negative (NEGATIVE); Candida Group, PCR NOT DETECTED (NOT DETECT); Candida glabrata-krusei, PCR NOT DETECTED (NOT DETECT)
== END ==
LOC: LAB 11:40 → LAB SHORT 11:40
PROVIDERS: Obstetrics & Gynecology
DX: N39.0 Urinary tract infection, site not specified (principal); N76.0 Acute vaginitis
CPT/HCPCS: 81001; 81515; 87086